=== PATIENT | female | born 1950 | race Hispanic/Latino ===

== ENCOUNTER 2018-01-07 20:04 | Emergency (ER) | payer MEDICARE, BC ==
[2018-01-07 20:10] VITALS: RESP 18; O2SAT 100
[2018-01-07] MEDS ORDERED: Sodium Chloride 0.9% 1,000 ML IV STA (20:11)
--- NOTE | 2018-01-07 20:42 | ED PDOC ---
Syncope/Near Syncope/Dizziness Time Seen by Provider: 01/07/18 20:09 Chief Complaint (Nursing): Syncope Chief Complaint (Provider): Syncope History Per: Patient, EMS History/Exam Limitations: no limitations Onset/Duration Of Symptoms: Sudden Onset Current Symptoms Are (Timing): Gone Now Additional Complaint(s): 67 year old female with pmHx of hypertension, arrives to emergency department via EMS for an evaluation of a syncopal event at [facility] prior to arrival. Witnesses state that it was very hot during the service when patient became pale, clammy then loss consciousness for 2 seconds with a head injury before returning to normal mental status. Patient reports she had blurry vision and lightheadedness prior to onset. She denies any chest pain, shortness of breath, nausea or vomiting. Patient reports no current symptoms at this time. PMD: Dr. Scottie Horner Past Medical History Reviewed: Historical Data, Nursing Documentation, Vital Signs Vital Signs: Last Vital Signs Temp 97.9 F 01/07/18 20:06 Pulse 72 01/07/18 20:06 Resp 18 01/07/18 20:06 BP 144/90 01/07/18 20:06 Pulse Ox 100 01/07/18 20:06 - Medical History PMH: HTN - Surgical History Surgical History: No Surg Hx - Family History Family History: States: Unknown Family Hx - Allergies Allergies/Adverse Reactions: Allergies Allergy/AdvReac Type Severity Reaction Status Date / Time No Known Allergies Allergy Verified 01/07/18 20:06 Review of Systems ROS Statement: Except As Marked, All Systems Reviewed And Found Negative Eyes: Positive for: Vision Change (blurry - resolved) Cardiovascular: Negative for: Chest Pain Respiratory: Negative for: Shortness of Breath Gastrointestinal: Negative for: Nausea, Vomiting Neurological: Positive for: Dizziness (lightheaded - resolved), Other (LOC with head injury) Physical Exam - Reviewed Nursing Documentation Reviewed: Yes Vital Signs Reviewed: Yes - Physical Exam Appears: Positive for: Non-toxic, No Acute Distress Head Exam: Positive for: ATRAUMATIC, NORMAL INSPECTION, NORMOCEPHALIC Skin: Positive for: Normal Color Eye Exam: Positive for: Normal appearance, EOMI, PERRL ENT: Positive for: Normal ENT Inspection Neck: Positive for: Normal Cardiovascular/Chest: Positive for: Regular Rate, Rhythm Respiratory: Positive for: Normal Breath Sounds. Negative for: Respiratory Distress Extremity: Positive for: Normal ROM (upper/lower) Neurologic/Psych: Positive for: Alert (x3), fruit rancher II-XII (grossly intact), Oriented. Negative for: Motor/Sensory Deficits, Aphasia - ECG O2 Sat by Pulse Oximetry: 100 (RA) Pulse Ox Interpretation: Normal Medical Decision Making Medical Decision Making: Initial Impression: 67 y/o female with syncopal event Initial Plan: * Labs * EKG * Accucheck * IV fluids Time: 2039 --Patient refused all testings and choosing to leave against medical advice. The provider has personally explained to the patient that choosing to do so may result in permanent bodily harm or . The provider discussed at great length that without further evaluation and monitoring there may be unforeseen circumstances and/or deterioration causing permanent bodily harm or as a result of their choice. The patient verbalized these risks back to the physician in laymans terms. The patient is alert, oriented, and shows the mental capacity to make clear decisions regarding her health care at this time. The patient continues to wish to leave against medical advice. The patient has been advised that they should return to the ED immediately if they change their mind at any time, or if their condition begins to change or worsen in any way. Scribe Attestation: Documented by Marah Gaona, acting as a scribe for Rivas Shah MD. Provider Scribe Attestation: All medical record entries made by the Scribe were at my direction and personally dictated by me. I have reviewed the chart and agree that the record accurately reflects my personal performance of the history, physical exam, medical decision making, and the department course for this patient. I have also personally directed, reviewed, and agree with the discharge instructions and disposition. Disposition - Clinical Impression Clinical Impression: Syncope - Patient ED Disposition Is Patient to be Admitted: No Counseled Patient/Family Regarding: Need For Followup - Disposition Disposition: Against Medical Advice Disposition Time: 20:40 Condition: STABLE Instructions: Leaving Against Medical Advice Forms: [employer] (Finnish)
[2018-01-07 20:46] VITALS: BP 141/86; PULSE 75; TEMP 98.5
== END 2018-01-07 20:53 | disposition left against medical advice (07) ==
LOC: H.ER 20:04
DX: R55 Syncope and collapse (principal); I10 Essential (primary) hypertension